=== PATIENT | male | born 1990 | race African-American/Black ===

== ENCOUNTER 2021-08-19 12:51 | Emergency (ER) | payer MEDICAID, OTHER ==
[~2021-08-19] VITALS: Ht 185.4 cm; Wt 82.0 kg
[~2021-08-19 12:51] MED LIST: PHEN100C4 PO
[2021-08-19] MEDS ORDERED: VISCOUS LIDOCAINE 2% 15 ML UDC PO STA (15:47)
[2021-08-19] MEDS ORDERED: MAGNESIUM/ALUMINUM HYDROXIDE/SIMETHICONE 30ML UDC PO STA (15:47)
[2021-08-19] MEDS ORDERED: ONDANSETRON 4MG ODT PO STA (15:47)
[2021-08-19 16:46] LABS: CHLORIDE 108 mEq/L (98-107)
[2021-08-19 16:47] LABS: BASOPHILS % 0.7 % (0.0-2.0); EOSINOPHILS % 2.8 % (0.0-5.0); HEMATOCRIT. 39.6 % (42.0-52.0); HEMOGLOBIN. 13.5 g/dL (14.0-18.0); LYMPHOCYTES % 44.8 % (20.0-50.0); MEAN CORPUSCULAR HEMOGLOBIN 29.3 pg (28.0-32.0); MEAN CORPUSCULAR VOLUME 86.1 fL (80.0-94.0); MEAN PLATELET VOLUME 9.8 fl (7.4-10.4); MONOCYTES % 11.3 % (2.0-8.0); NEUTROPHILS % 40.4 % (40.0-76.0); PLATELET 202 x1000/uL (130-400); RED BLOOD CELL COUNT 4.61 mill/uL (4.7-6.1); RED CELL DISTRIBUTION WIDTH 13.2 % (11.6-14.6)
[2021-08-19 17:15] LABS: INR 1.1; PROTHROMBIN TIME 11.5 sec (9.6-11.0)
[2021-08-19 19:19] LABS: CLARITY URINE CLEAR (CLEAR); COLOR URINE YELLOW (YELLOW); KETONES URINE NEGATIVE (NEGATIVE); LEUKOCYTE ESTERASE URINE NEGATIVE (NEGATIVE); NITRITE URINE NEGATIVE (NEGATIVE); OCCULT BLOOD URINE NEGATIVE (NEGATIVE); PH URINE 7.5 (4.5-8.0); PROTEIN URINE NEGATIVE (NEGATIVE); SPECIFIC GRAVITY URINE 1.004 (1.005-1.030); UROBILINOGEN URINE 0.2 E.U./dL (0.2-1.0)
[2021-08-19 19:24] VITALS: BP 110/67
[2021-08-19] MEDS ORDERED: FAMO-135 MT (19:27)
[2021-08-22 04:07] LABS: NEISSERIA GONORRHOEAE NAA Negative (Negative)
== END 2021-08-19 20:05 | disposition home or self-care (01) ==
LOC: ER 12:51
DX: R10.9 Unspecified abdominal pain (principal); Z86.59 Personal history of other mental and behavioral disorders
CPT/HCPCS: 36415; 80053; 81003; 83690; 85025; 85610; 87491; 87591; 99284; Q0162